=== PATIENT | female | born 1980 | race African-American/Black ===

== ENCOUNTER 2021-03-07 21:35 | Inpatient (IN) | payer OTHER ==
[2021-03-07] MEDS: ELECTROLYTE-148 SOLN 1,000 ML IV SCH (22:15)
[2021-03-07 23:05] LABS: BASO % 0.4 % (0-2.0); EOS % 1.2 % (0-4.5); HEMATOCRIT 30.5 % (32.4-45.2); HEMOGLOBIN 10.2 GM/dL (10.7-15.3); LYMPH % 19.8 % (8-40); MCH 27.2 pg (25.7-33.7); MCHC 33.5 g/dl (32.0-36.0); MEAN CELL VOLUME 81.2 fl (80-96); MEAN PLT VOLUME 8.1 fl (7.5-11.1); MONO % 6.1 % (3.8-10.2); NEUT % 72.5 % (42.8-82.8); PLATELET COUNT 268 10^3/uL (134-434); RBC 3.76 M/mm3 (3.60-5.2); RDW 14.4 % (11.6-15.6); WHITE BLOOD COUNT 10.6 K/mm3 (4.0-10.0)
[2021-03-07 23:24] LABS: CALCIUM 8.6 mg/dL (8.5-10.1)
[2021-03-07 23:25] LABS: BLOOD UREA NITROGEN 8.2 mg/dL (7-18)
[2021-03-07 23:27] LABS: INR 0.95 (0.83-1.09); PROTHROMBIN TIME (PATIENT) 10.6 SEC (9.7-13.0)
[2021-03-07 23:28] LABS: CREATININE 0.8 mg/dL (0.55-1.3)
[2021-03-07 23:29] LABS: ACTIVATED PTT 24.5 SECONDS (25.2-36.5)
[2021-03-07 23:45] VITALS: BMI 44.6
[2021-03-07] MEDS ORDERED: OXYTOCIN 30 UNITS in 0.9% NS 30 UNIT/500 ML INFUS.BAG IVPB SCH (23:45)
[2021-03-08] MEDS ORDERED: FENTANYL/BUPIVACAINE/NS/PF - PCEA - 50 ML DISP.SYRIN EP ONE ×2 (00:07→04:26)
[2021-03-08] MEDS: FENTANYL/BUPIVACAINE/NS/PF - PCEA - 50 ML DISP.SYRIN EP SCH ×2 (00:45→04:30)
[2021-03-08] MEDS ORDERED: NALOXONE HCL 0.4 MG/ML VIAL IVPUSH PRN (00:55)
[2021-03-08] MEDS: ELECTROLYTE-148 SOLN 1,000 ML IV SCH ×2 (01:05→03:30)
[2021-03-08 02:00] LABS: HIV INTERPRETATION NEGATIVE (NEGATIVE)
[2021-03-08] MEDS ORDERED: OXYTOCIN 20 UNITS in 0.9% NS 20 UNIT/1,000 ML INFUS.BAG IV ONE ×2 (05:52→08:16)
[2021-03-08] MEDS ORDERED: OXYTOCIN 30 UNITS in 0.9% NS 30 UNIT/500 ML INFUS.BAG IVPB ONE (05:53)
[2021-03-08] MEDS: OXYTOCIN 20 UNITS in 0.9% NS 20 UNIT/1,000 ML INFUS.BAG IV SCH ×2 (06:03→08:20)
[2021-03-08] MEDS ORDERED: METHYLERGONOVINE MALEATE 0.2 MG/1 ML AMP IM PRN (06:29)
[2021-03-08] MEDS ORDERED: oxyCODONE HCL 5 MG TABLET PO PRN (06:29)
[2021-03-08] MEDS ORDERED: ACETAMINOPHEN 325 MG TABLET (FP) PO PRN (06:29)
[2021-03-08] MEDS ORDERED: BENZOCAINE 28 GM HEMORRHOIDAL OINTMENT TP PRN (06:29)
[2021-03-08] MEDS ORDERED: BENZOCAINE 20% 57 GM BOTTLE TP PRN (06:29)
[2021-03-08] MEDS ORDERED: BISACODYL 10 MG SUPP.RECT RC PRN (06:29)
[2021-03-08] MEDS ORDERED: WITCH HAZEL 50% (TUCKS) 40 PAD/JAR PAD TP PRN (06:29)
[2021-03-08] MEDS ORDERED: IBUPROFEN 600 MG TABLET (FP) PO ONE (07:33)
[2021-03-08] MEDS: IBUPROFEN 600 MG TABLET (FP) PO PRN ×2 (07:35→14:11)
[2021-03-08] MEDS: PRENATAL VITAMINS W/ FOLIC ACID TABLET (FP) PO SCH (09:37)
[2021-03-09 08:58] LABS: BASO % 0.4 % (0-2.0); EOS % 1.3 % (0-4.5); HEMATOCRIT 27.1 % (32.4-45.2); HEMOGLOBIN 8.9 GM/dL (10.7-15.3); LYMPH % 16.8 % (8-40); MCH 27.6 pg (25.7-33.7); MCHC 32.7 g/dl (32.0-36.0); MEAN CELL VOLUME 84.4 fl (80-96); MEAN PLT VOLUME 8.8 fl (7.5-11.1); MONO % 3.7 % (3.8-10.2); NEUT % 77.8 % (42.8-82.8); PLATELET COUNT 227 10^3/uL (134-434); RBC 3.21 M/mm3 (3.60-5.2); RDW 14.9 % (11.6-15.6); WHITE BLOOD COUNT 16.4 K/mm3 (4.0-10.0)
[2021-03-09] MEDS: IBUPROFEN 600 MG TABLET (FP) PO PRN (09:25)
[2021-03-09] MEDS: PRENATAL VITAMINS W/ FOLIC ACID TABLET (FP) PO SCH (09:26)
[2021-03-09] MEDS ORDERED: SENNOSIDES/DOCUSATE COMBO (SENNA PLUS) TABLET (UD) PO PRN (22:00)
[2021-03-10] MEDS: IBUPROFEN 600 MG TABLET (FP) PO PRN ×2 (01:31→09:51)
[2021-03-10 08:40] VITALS: BP 144/78; PULSE 78; TEMP 98.2
[2021-03-10] MEDS: PRENATAL VITAMINS W/ FOLIC ACID TABLET (FP) PO SCH (09:51)
== END 2021-03-10 13:45 | disposition home or self-care (01) | DRG 807 ==
LOC: JLDR 21:35 → J3W 03-08 08:45
PROVIDERS: ADMIT Obstetrics & Gynecology; ATTEND Obstetrics & Gynecology
PROC: 0W8NXZZ Division of Female Perineum, External Approach (ICD-10-PCS; principal; 2021-03-08)
PROC: 10E0XZZ Delivery of Products of Conception, External Approach (ICD-10-PCS; 2021-03-08)
DX: O69.1XX0 Labor and delivery complicated by cord around neck, with compression, not applicable or unspecified (principal); Z37.0 Single live birth; Z3A.40 40 weeks gestation of pregnancy
CPT/HCPCS: 36415; 59409; 80048; 85025; 85610; 85730; 86780; 86850; 86900; 86901; 87389; C9803; U0003; U0005